=== PATIENT | female | born 1980 | race Caucasian/White ===

== ENCOUNTER 2017-01-19 20:09 | Emergency (ER) | payer BC, MEDICAID ==
[~2017-01-19] VITALS: Ht 175.3 cm; Wt 72.6 kg
[2017-01-19 20:13] VITALS: BP 135/86
== END 2017-01-19 20:39 | disposition home or self-care (01) ==
LOC: ER 20:11
DX: R51 Headache (principal); B00.9 Herpesviral infection, unspecified; Z88.0 Allergy status to penicillin
CPT/HCPCS: 99283; A4606; Z7610

== ENCOUNTER 2017-02-27 16:44 | Outpatient (CLI) | payer BC, MEDICAID | END 2017-02-27 23:59 | disposition home or self-care (01) | DX: Z11.59 Encounter for screening for other viral diseases (principal) ==

== ENCOUNTER 2017-09-13 22:53 | Emergency (ER) | payer BC, MEDICAID ==
[~2017-09-13] VITALS: Ht 175.3 cm; Wt 74.8 kg
--- NOTE | 2017-09-13 23:05 | NUR ---
PT AMBULATORY TO ER BED 16. HERE FOR THROAT PAIN AND SWELLING X 2 WEEKS, FINISHED A COURSE OF ANTIBIOTICS. NO RELIEF. WAS ADVISED BY DR GOLDSTEIN TO GO TO ED. PLACED ON MONITOR. STABLE VITALS. AWAITITLETICIA SHINE.
--- NOTE | 2017-09-13 23:35 | NUR ---
NAOMI MENA AT BEDSIDE FOR EVAL.
--- NOTE | 2017-09-13 23:55 | NUR ---
IV LINE STARTED BLOOD DRAWN AND SENT TO LAB.
[2017-09-13] MEDS ORDERED: ONDANSETRON HCL/PF 4 MG/2 ML VIAL ONE (23:59)
[2017-09-14] MEDS ORDERED: ONDANSETRON HCL/PF - ER 4 MG/2 ML VIAL IV ONE
[2017-09-14] MEDS ORDERED: IV NS 0.9% 1,000 ML BAG IV ONE
[2017-09-14] MEDS ORDERED: MORPHINE SULFATE INJ 2 MG/ML DISP.SYRIN ONE
[2017-09-14] MEDS ORDERED: MORPHINE SULFATE INJ 4 MG/ML DISP.SYRIN IV ONE
[2017-09-14 00:05] LABS: BASOPHILS % (AUTO) 0.3 % (0.0-2.0); EOSINOPHILS # (AUTO) 0.1 /CMM (0.0-0.7); EOSINOPHILS % (AUTO) 0.5 % (0.0-6.0); HEMATOCRIT 40 % (33-45); HEMOGLOBIN 13.9 g/dL (11.5-14.8); LYMPHOCYTES # (AUTO) 1.3 /CMM (0.8-4.8); LYMPHOCYTES % (AUTO) 8.5 % (20.0-44.0); MEAN CORPUSCULAR HEMOGLOBIN 30 PG (26.0-33.0); MEAN CORPUSCULAR HGB CONC 35 g/dl (31.0-36.0); MEAN CORPUSCULAR VOLUME 87 fL (82-100); MONOCYTES # (AUTO) 0.6 /CMM (0.1-1.30); NEUTROPHILS # (AUTO) 12.8 /CMM (1.8-8.9); NEUTROPHILS % (AUTO) 86.7 % (43.0-81.0); PLATELET COUNT (AUTO) 199 /CMM (150-450); RDW COEFFICIENT OF VARIATION 12.6 (11.5-15.0); RED BLOOD CELL COUNT(AUTO) 4.63 MIL/uL (4.0-5.2); WHITE BLOOD COUNT (AUTO) 14.8 K/uL (4.3-11.0)
[2017-09-14 00:16] LABS: CALCIUM, SERUM 9.2 mg/dL (8.5-10.1); CREATININE 0.8 mg/dL (0.6-1.3); POTASSIUM 4.1 mmol/L (3.5-5.1)
[2017-09-14 00:22] LABS: ALBUMIN 3.8 g/dL (3.4-5.0); BILIRUBIN,DIRECT 0.1 mg/dL (0.0-0.2)
--- NOTE | 2017-09-14 00:28 | NUR ---
PT OT RADIOLOGY FOR NECK CT W/ CONTRAST VIA GURNEY.
[2017-09-14] MEDS ORDERED: CT SWABBABLE VALVE TRANS SET 1 EA INFUS.SET MC ONE (00:32)
[2017-09-14] MEDS ORDERED: IV NS 0.9% 250 ML IV ONE (00:32)
[2017-09-14] MEDS ORDERED: IOHEXOL-300 100 ML VIAL IV ONE (00:32)
[2017-09-14 00:48] LABS: MONOTEST NEGATIVE (NEGATIVE)
[2017-09-14 02:01] VITALS: BP 102/66
== END 2017-09-14 02:02 | disposition home or self-care (01) ==
LOC: ER 22:55
DX: J02.9 Acute pharyngitis, unspecified (principal); R13.10 Dysphagia, unspecified; Z88.0 Allergy status to penicillin
CPT/HCPCS: 36415; 70491-TC; 80048-TC; 80076-TC; 85025-TC; 86308-TC; 86403-TC; 87070-TC; A4606; J2270; J2405; J7030; J7050; Q9967; Z7610

== ENCOUNTER 2017-11-15 08:41 | Outpatient (CLI) | payer BC, MEDICAID | END 2017-11-15 23:59 | disposition home or self-care (01) | LOC: MRI 08:41 | PROVIDERS: ATTEND Legal Medicine | DX: M50.123 Cervical disc disorder at C6-C7 level with radiculopathy (principal); M43.12 Spondylolisthesis, cervical region; M48.02 Spinal stenosis, cervical region; M40.50 Lordosis, unspecified, site unspecified | CPT/HCPCS: 72141-TC ==

== ENCOUNTER 2017-11-27 13:19 | Outpatient (CLI) | payer BC, MEDICAID | END 2017-11-27 23:59 | disposition home or self-care (01) | LOC: MSC 13:19 | PROVIDERS: ATTEND Anesthesiology | DX: M50.10 Cervical disc disorder with radiculopathy, unspecified cervical region (principal); M47.12 Other spondylosis with myelopathy, cervical region; Z79.891 Long term (current) use of opiate analgesic ==

== ENCOUNTER 2017-12-25 12:36 | Emergency (ER) | payer BC, MEDICAID ==
[~2017-12-25] VITALS: Ht 175.3 cm; Wt 77.1 kg
--- NOTE | 2017-12-25 12:45 | NUR ---
BB , C/O FEELING DIZZY "ROOM IS SPINNING", HEADACHE, NAUSEA. NAD NOTED, VSS, RESP EVEN AND UNLABORED, PT WAS PUT ON MONITOR, AT BS.
[2017-12-25] MEDS ORDERED: ONDANSETRON HCL/PF 4 MG/2 ML VIAL IVP ONE (13:00)
[2017-12-25] MEDS ORDERED: MECLIZINE HCL 12.5 MG TABLET PO ONE (13:00)
[2017-12-25] MEDS ORDERED: LORAZEPAM INJ 2 MG/ML VIAL IV ONE (13:00)
[2017-12-25] MEDS ORDERED: IV NS 0.9% 1,000 ML BAG IV ONE (13:00)
[2017-12-25] MEDS ORDERED: MECLIZINE HCL 25 MG TABLET ONE (13:01)
[2017-12-25] MEDS ORDERED: ONDANSETRON HCL/PF 4 MG/2 ML VIAL ONE (13:01)
[2017-12-25] MEDS ORDERED: LORAZEPAM INJ 2 MG/ML VIAL ONE (13:02)
--- NOTE | 2017-12-25 14:37 | NUR ---
PT UNABLE TO SIT UP, STARTED FEELING NAUSEATED AND DIZZY.
[2017-12-25 15:08] LABS: BASOPHILS # (AUTO) 0.1 /CMM (0.0-0.2); BASOPHILS % (AUTO) 1.5 % (0.0-2.0); EOSINOPHILS % (AUTO) 1.6 % (0.0-6.0); HEMATOCRIT 44 % (33-45); LYMPHOCYTES # (AUTO) 1.3 /CMM (0.8-4.8); LYMPHOCYTES % (AUTO) 19.3 % (20.0-44.0); MEAN CORPUSCULAR HEMOGLOBIN 29 PG (26.0-33.0); MEAN CORPUSCULAR HGB CONC 34 g/dl (31.0-36.0); MEAN CORPUSCULAR VOLUME 86 fL (82-100); MONOCYTES # (AUTO) 0.4 /CMM (0.1-1.30); MONOCYTES % (AUTO) 5.4 % (2.0-12.0); NEUTROPHILS # (AUTO) 4.7 /CMM (1.8-8.9); NEUTROPHILS % (AUTO) 72.2 % (43.0-81.0); PLATELET COUNT (AUTO) 246 /CMM (150-450); RDW COEFFICIENT OF VARIATION 11.6 (11.5-15.0); RED BLOOD CELL COUNT(AUTO) 5.17 MIL/uL (4.0-5.2)
[2017-12-25 15:09] LABS: WHITE BLOOD COUNT (AUTO) 6.6 K/uL (4.3-11.0)
[2017-12-25 15:15] LABS: CREATININE 0.8 mg/dL (0.6-1.3); POTASSIUM 4.6 mmol/L (3.5-5.1)
[2017-12-25 15:17] LABS: INR 0.95 (0.85-1.15)
[2017-12-25 15:21] LABS: BILIRUBIN,TOTAL 0.5 mg/dL (0.2-1.0)
[2017-12-25] MEDS ORDERED: CT SWABBABLE VALVE TRANS SET 1 EA INFUS.SET MC ONE (15:28)
[2017-12-25] MEDS ORDERED: IV NS 0.9% 250 ML IV ONE (15:28)
[2017-12-25] MEDS ORDERED: IOHEXOL-350 100 ML VIAL IV ONE (15:28)
--- NOTE | 2017-12-25 15:38 | NUR ---
PT TO CTSCAN
[2017-12-25 17:18] VITALS: BP 122/75
--- NOTE | 2017-12-25 17:18 | NUR ---
Patient discharged to home in stable condition. Written and verbal after care instructions given. Patient verbalizes understanding of instruction.IV removed. Catheter intact and site benign. Pressure and 4x4 applied to site. No bleeding noted.
== END 2017-12-25 17:25 | disposition home or self-care (01) ==
LOC: ER 12:36
DX: H81.10 Benign paroxysmal vertigo, unspecified ear (principal); R93.0 Abnormal findings on diagnostic imaging of skull and head, not elsewhere classified; R79.1 Abnormal coagulation profile; M50.20 Other cervical disc displacement, unspecified cervical region; Z88.0 Allergy status to penicillin; Z60.2 Problems related to living alone
CPT/HCPCS: 36415; 70496-TC; 70498-TC; 80053-TC; 85025-TC; 85610-TC; A4606; J2060; J2405; J7030; J7050; J8597; Q9967; Z7610

== ENCOUNTER 2018-01-10 13:30 | Outpatient (CLI) | payer BC, MEDICAID ==
[2018-01-10] MEDS ORDERED: GADODIAMIDE 5 MMOL/10 ML VIAL IJ ONE (13:31)
[2018-01-10] MEDS ORDERED: GADODIAMIDE 2.5 MMOL/5 ML VIAL IJ ONE (13:31)
== END 2018-01-10 23:59 | disposition home or self-care (01) ==
LOC: MRI 13:30
PROVIDERS: ATTEND Legal Medicine
DX: I72.8 Aneurysm of other specified arteries (principal)

== ENCOUNTER 2018-01-11 11:34 | Outpatient (CLI) | payer BC, MEDICAID | END 2018-01-11 23:59 | disposition home or self-care (01) | LOC: MSC 11:34 | PROVIDERS: ATTEND Anesthesiology | DX: M50.10 Cervical disc disorder with radiculopathy, unspecified cervical region (principal); M47.12 Other spondylosis with myelopathy, cervical region; R42 Dizziness and giddiness; Z79.899 Other long term (current) drug therapy ==

== ENCOUNTER 2018-02-07 08:28 | Outpatient (CLI) | payer BC, MEDICAID ==
[2018-02-07] MEDS ORDERED: GADODIAMIDE 5 MMOL/10 ML VIAL IJ ONE (08:29)
[2018-02-07] MEDS ORDERED: GADODIAMIDE 2.5 MMOL/5 ML VIAL IJ ONE (08:29)
== END 2018-02-07 23:59 | disposition home or self-care (01) ==
LOC: MRI 08:28
DX: R42 Dizziness and giddiness (principal)
CPT/HCPCS: 70553-TC

== ENCOUNTER 2019-05-02 13:21 | Outpatient (CLI) | payer BC, MEDICAID ==
[~2019-05-02 13:21] MED LIST: TRAM50TA2 PO
== END 2019-05-02 23:59 | disposition home or self-care (01) ==
LOC: MRI 13:21
PROVIDERS: ATTEND Legal Medicine
DX: Z87.891 Personal history of nicotine dependence (principal); R42 Dizziness and giddiness
CPT/HCPCS: 70551-TC

== ENCOUNTER 2019-06-13 09:38 | Emergency (ER) | payer BC, OTHER ==
[~2019-06-13] VITALS: Ht 172.7 cm; Wt 69.9 kg
--- NOTE | 2019-06-13 09:45 | NUR ---
PT BIB SELF C/O UPPER BACK PAIN AND FLU LIKE SYMPTOMS STARTED 2 DAYS AGO, PT IS AAOX4, NOT IN RESPIRATORY DISTRESS, HOOKED TO MONITOR, KEPT RESTED AND COMFORTABLE, WILL CONTINUE TO MONITOR.
--- NOTE | 2019-06-13 09:46 | NUR ---
SEEN AND EXAMINED BY DR. MALCOLM.
--- NOTE | 2019-06-13 09:57 | NUR ---
ER PHLEB AT BEDSIDE FOR BLOOD DRAW.
[2019-06-13 10:04] VITALS: BP 115/87
[2019-06-13 10:06] LABS: BASOPHILS # (AUTO) 0.1 /CMM (0.0-0.2); EOSINOPHILS % (AUTO) 2.4 % (0.0-6.0); HEMATOCRIT 44 % (33-45); HEMOGLOBIN 14.6 g/dL (11.5-14.8); LYMPHOCYTES # (AUTO) 1.5 /CMM (0.8-4.8); LYMPHOCYTES % (AUTO) 24.5 % (20.0-44.0); MEAN CORPUSCULAR HGB CONC 33 g/dl (31.0-36.0); MEAN CORPUSCULAR VOLUME 90 fL (82-100); MONOCYTES # (AUTO) 0.4 /CMM (0.1-1.30); NEUTROPHILS # (AUTO) 4.1 /CMM (1.8-8.9); NEUTROPHILS % (AUTO) 66.1 % (43.0-81.0); PLATELET COUNT (AUTO) 211 /CMM (150-450); RED BLOOD CELL COUNT(AUTO) 4.87 MIL/uL (4.0-5.2); WHITE BLOOD COUNT (AUTO) 6.2 K/uL (4.3-11.0)
[2019-06-13 10:16] LABS: CALCIUM, SERUM 9.2 mg/dL (8.5-10.1); CARBON DIOXIDE 30 mmol/L (21-32); CHLORIDE 103 mmol/L (98-107); CREATININE 0.9 mg/dL (0.6-1.3); GLUCOSE 88 mg/dL (74-106); POTASSIUM 3.8 mmol/L (3.5-5.1); SODIUM SERUM 142 mmol/L (136-145); UREA NITROGEN, BLOOD 15 mg/dL (7-18)
[2019-06-13 10:22] LABS: ALANINE AMINOTRANSFERASE 21 U/L (12-78); ALKALINE PHOSPHATASE 51 U/L (46-116); ASPARTATE AMINOTRANSFERASE 16 U/L (15-37); BILIRUBIN,DIRECT 0.1 mg/dL (0.0-0.2); BILIRUBIN,TOTAL 0.3 mg/dL (0.2-1.0); TOTAL PROTEIN, SERUM 7.7 g/dL (6.4-8.2)
--- NOTE | 2019-06-13 13:01 | NUR ---
Patient discharged to home in stable condition. Written and verbal after care instructions given. Patient verbalizes understanding of instruction.
== END 2019-06-13 13:04 | disposition home or self-care (01) ==
LOC: ER 09:40
DX: R07.89 Other chest pain (principal); Z98.890 Other specified postprocedural states; Z98.82 Breast implant status; Z88.0 Allergy status to penicillin; Z60.2 Problems related to living alone; Z79.899 Other long term (current) drug therapy
CPT/HCPCS: 36415; 71045-TC; 80048-TC; 80076-TC; 84484-TC; 84702-TC; 85025-TC; 85378-TC

== ENCOUNTER 2019-07-09 13:34 | Emergency (ER) | payer BC, OTHER ==
[~2019-07-09] VITALS: Ht 175.3 cm; Wt 70.3 kg
--- NOTE | 2019-07-09 14:00 | NUR ---
c/o dizziness, headache, nausea since this morning, patient states, "i turn my AC on last night and started smelling gas", took ibu 600 mg 11am. on room air, breathing evenly and unlabored. connected to the monitor and pulse ox. kept comfortable, will continue to monitor accoridngly.
[2019-07-09] MEDS ORDERED: ONDANSETRON HCL/PF 4 MG/2 ML VIAL ONE (14:28)
[2019-07-09 14:30] LABS: BASOPHILS % (AUTO) 0.6 % (0.0-2.0); EOSINOPHILS % (AUTO) 1.6 % (0.0-6.0); HEMATOCRIT 45 % (33-45); HEMOGLOBIN 14.9 g/dL (11.5-14.8); LYMPHOCYTES # (AUTO) 1.4 /CMM (0.8-4.8); LYMPHOCYTES % (AUTO) 18.1 % (20.0-44.0); MEAN CORPUSCULAR HGB CONC 34 g/dl (31.0-36.0); MEAN CORPUSCULAR VOLUME 91 fL (82-100); MONOCYTES # (AUTO) 0.5 /CMM (0.1-1.30); MONOCYTES % (AUTO) 6.9 % (2.0-12.0); NEUTROPHILS # (AUTO) 5.7 /CMM (1.8-8.9); NEUTROPHILS % (AUTO) 72.8 % (43.0-81.0); PLATELET COUNT (AUTO) 226 /CMM (150-450); RED BLOOD CELL COUNT(AUTO) 4.89 MIL/uL (4.0-5.2); WHITE BLOOD COUNT (AUTO) 7.8 K/uL (4.3-11.0)
[2019-07-09] MEDS ORDERED: IV NS 0.9% 1,000 ML BAG IV ONE (14:30)
[2019-07-09] MEDS ORDERED: ONDANSETRON HCL/PF 4 MG/2 ML VIAL IVP ONE (14:30)
[2019-07-09] MEDS ORDERED: KETOROLAC TROMETHAMINE INJ 30 MG/ML VIAL IV ONE (14:30)
[2019-07-09 14:43] LABS: CALCIUM, SERUM 9.5 mg/dL (8.5-10.1); CARBON DIOXIDE 27 mmol/L (21-32); CHLORIDE 104 mmol/L (98-107); CREATININE 0.9 mg/dL (0.6-1.3); GLUCOSE 89 mg/dL (74-106); POTASSIUM 4.2 mmol/L (3.5-5.1); SODIUM SERUM 141 mmol/L (136-145); UREA NITROGEN, BLOOD 18 mg/dL (7-18)
[2019-07-09 14:49] LABS: ALANINE AMINOTRANSFERASE 27 U/L (12-78); ALKALINE PHOSPHATASE 63 U/L (46-116); ASPARTATE AMINOTRANSFERASE 18 U/L (15-37); BILIRUBIN,DIRECT 0.1 mg/dL (0.0-0.2); BILIRUBIN,TOTAL 0.7 mg/dL (0.2-1.0); LIPASE 163 U/L (73-393)
[2019-07-09] MEDS ORDERED: KETOROLAC TROMETHAMINE INJ 30 MG/ML VIAL ONE (15:30)
[2019-07-09 15:51] VITALS: BP 120/71
== END 2019-07-09 15:51 | disposition home or self-care (01) ==
LOC: ER 13:37
DX: R42 Dizziness and giddiness (principal); R51 Headache; R11.0 Nausea; Z98.890 Other specified postprocedural states; Z88.0 Allergy status to penicillin; Z60.2 Problems related to living alone; Z79.899 Other long term (current) drug therapy
CPT/HCPCS: 36415; 80048; 80076; 83690; 84484; 84702; 85025; 93005; 96361; 96374; 96375; 99284; J1885; J2405; J7030

== ENCOUNTER 2019-09-18 08:58 | Outpatient (CLI) | payer BC, OTHER ==
[2019-09-18 11:20] LABS: APPEARANCE,URINE SL CLOUDY (CLEAR); BILIRUBIN,URINE NEGATIVE (NEGATIVE); BLOOD, URINE TRACE-INTA Ery/uL (NEGATIVE); COLOR,URINE YELLOW (YELLOW); KETONES,URINE NEGATIVE (NEGATIVE); LEUKOCYTE ESTERASE ,URINE NEGATIVE (NEGATIVE); NITRITE, URINE NEGATIVE (NEGATIVE); PH,URINE 6.5 (5.0-8.0); PROTEIN,URINE NEGATIVE (NEGATIVE); UGLUCOSE NEGATIVE (NEGATIVE); UROBILINOGEN,URINE 0.2 EU/dL (0.2)
[2019-09-18 11:46] LABS: CHOLESTEROL 192 mg/dL (<200); FERRITIN 132 ng/mL (8-388); HDL CHOLESTEROL 53 mg/dL (40-60); IRON, SERUM 114 ug/dl (50-175); LDL 127 mg/dL (0-99); TRIGLYCERIDES 65 mg/dL (30-150)
[2019-09-18 12:47] LABS: BACTERIA,URINE None seen /HPF (None Seen); RBC,URINE 0-2 /HPF (0-2); SQUAMOUS EPITHELIAL CELL,UR Moderate /HPF (None Seen); WBC,URINE NONE SEEN /HPF (0-3)
[2019-09-19 07:06] LABS: FOLIC ACID 19.4 ng/mL (>3.0)
== END 2019-09-18 23:59 | disposition home or self-care (01) ==
LOC: LAB 08:58
PROVIDERS: ATTEND Legal Medicine
DX: Z00.00 Encounter for general adult medical examination without abnormal findings (principal)
CPT/HCPCS: 36415; 80061-TC; 81000-TC; 82306; 82728-TC; 83540-TC

== ENCOUNTER 2020-01-16 14:16 | Emergency (ER) | payer BC, OTHER ==
[~2020-01-16] VITALS: Ht 175.3 cm; Wt 71.2 kg
[2020-01-16 14:18] VITALS: BP 111/82
--- NOTE | 2020-01-16 16:44 | NUR ---
Patient discharged to home in stable condition. Written and verbal after care instructions given. Patient verbalizes understanding of instruction. Pt ambulatory with a steady gait
== END 2020-01-16 16:46 | disposition home or self-care (01) ==
LOC: ER 14:17
DX: R06.02 Shortness of breath (principal); R05 Cough; Z20.828 Contact with and (suspected) exposure to other viral communicable diseases
CPT/HCPCS: 71045-TC

== ENCOUNTER 2020-05-18 13:17 | Outpatient (CLI) | payer BC, OTHER ==
[2020-05-18 14:13] LABS: FREE T4 (FREE THYROXINE) 1.07 ng/dL (0.76-1.46); THYROID STIMULATING HORMONE 1.02 uIU/mL (0.358-3.74)
== END 2020-05-18 23:59 | disposition home or self-care (01) ==
LOC: LAB 13:17
PROVIDERS: ATTEND Internal Medicine Interventional Cardiology
DX: E03.9 Hypothyroidism, unspecified (principal); E78.5 Hyperlipidemia, unspecified
CPT/HCPCS: 36415; 80061-TC; 84439-TC; 84443-TC

== ENCOUNTER 2020-05-27 14:18 | Outpatient (CLI) | payer BC, OTHER | END 2020-05-27 23:59 | disposition home or self-care (01) | LOC: CARD 14:18 | DX: R00.2 Palpitations (principal) | CPT/HCPCS: 93307-TC ==

== ENCOUNTER 2020-06-08 10:30 | Emergency (ER) | payer BC, OTHER ==
[~2020-06-08] VITALS: Ht 175.3 cm; Wt 69.4 kg
[2020-06-08 10:34] VITALS: BP 119/89
--- NOTE | 2020-06-08 11:20 | NUR ---
covid swab sent. Patient discharged to home in stable condition. Written and verbal after care instructions given. Patient verbalizes understanding of instruction.
== END 2020-06-08 11:26 | disposition home or self-care (01) ==
LOC: ER 10:33
DX: R51.9 Headache, unspecified (principal); R05 Cough; J02.9 Acute pharyngitis, unspecified; Z20.828 Contact with and (suspected) exposure to other viral communicable diseases; Z88.0 Allergy status to penicillin
CPT/HCPCS: 99283; C9803; U0003